=== PATIENT | male | born 1965 | race African-American/Black ===

== ENCOUNTER 2020-04-06 08:55 | Day surgery (SDC) | payer OTHER ==
[2020-03-28 10:30] VITALS: BMI 28.6
--- NOTE | 2020-04-06 07:46 | HP ---
Admitting History and Physical - Admission Chief Complaint: Right hip osteoarthritis x years History of Present Illness: 54 year old male presents today in regard to their right hip. Longstanding history of right hip osteoarthritis. Patient complains of pain, limited ROM, difficulty ambulating and difficulty completing activities of daily living. Patient has failed conservative treatment options including PO medications, injections, exercise programs and activity modification. Diagnostic testing reveals severe osteoarthritis of the right hip joint. At this point, patient would like to proceed with surgical intervention; a right total hip arthroplasty, MAKOplasty. History Source: Patient - Past Medical History Musculoskeletal: Yes: Osteoarthritis - Past Surgical History Additional Past Surgical History: surgery on L hand 1993 - Smoking History Smoking history: Never smoked Have you smoked in the past 12 months: No - Alcohol/Substance Use Hx Alcohol Use: Yes (SUGGS 1-2 X WKLY) Home Medications - Allergies Allergies/Adverse Reactions: Allergies Allergy/AdvReac Type Severity Reaction Status Date / Time No Known Drug Allergies Allergy Verified 10/04/19 11:39 - Home Medications Home Medications: Ambulatory Orders Oxycodone HCl 10 mg PO ASDIR PRN 03/28/20 Review of Systems - Review of Systems Musculoskeletal: reports: Decreased ROM (right hip), Joint Pain (right hip) Physical Examination Constitutional: Yes: Well Nourished, No Distress Eyes: Yes: Conjunctiva Clear HENT: Yes: Atraumatic Neck: Yes: Supple Cardiovascular: Yes: Regular Rate and Rhythm Respiratory: Yes: Regular Gastrointestinal: Yes: Soft ...Rectal Exam: Yes: Deferred Musculoskeletal: Yes: Joint Stiffness (right hip), Other (Limited ROM right hip) Assessment/Plan 54 year old male presents today in regard to their right hip. Longstanding history of right hip osteoarthritis. Patient complains of pain, limited ROM, difficulty ambulating and difficulty completing activities of daily living. Patient has failed conservative treatment options including PO medications, injections, exercise programs and activity modification. Diagnostic testing reveals severe osteoarthritis of the right hip joint. At this point, patient wo uld like to proceed with surgical intervention; a right total hip arthroplasty, MAKOplasty. Pros, cons, risks, benefits & alternatives of a right total hip arthroplasty, MAKOplasty was discussed with the patient at length. Patient confirms his understanding and consents to proceed with a right total hip arthroplasty - MAKOplasty.
[~2020-04-06 08:55] MED LIST: BUPIVICAINE 0.25%/MORPH PF/KETOROLAC - 51ML DISP.SYRINGE IA ONE; CEFAZOLIN 2 GM/D5W 2 GRAM/50 ML ML IVPB ONE; CELECOXIB 200 MG CAPSULE PO ONE; PANTOPRAZOLE 40 MG TABLET PO ONE; TRANEXAMIC ACID 1000 MG/10 ML VIAL IVPUSH ONE; oxyCODONE HCL 10 MG SUSTAINED ACTING TABLET PO ONE
[2020-04-06 09:25] VITALS: BP 134/82; PULSE 68; TEMP 98.1
--- NOTE | 2020-04-06 12:38 | PN ---
Progress Note (short form) - Note Progress Note: Pt's surgery canceled because he has a right lower jaw dental abscess with significant swelling x 1 week from cracked tooth. Will be prescribed Augmentin and will make appt to see dentist tomorrow. Surgery will be rescheduled when abscess is resolved.
== END 2020-04-06 12:30 | disposition home or self-care (01) | DRG 351 ==
LOC: UNDOADMIN 08:55 → FASUSAT 08:55 → FM/S 08:55 → EDSTATUS 11:00 → UNDODISIN 12:30 → FASUSAT 12:30
PROVIDERS: ATTEND Student in an Organized Health Care Education/Training Program
PROC: 0SR90JZ Replacement of Right Hip Joint with Synthetic Substitute, Open Approach (ICD-10-PCS; principal; 2020-04-06)
DX: M16.11 Unilateral primary osteoarthritis, right hip (principal); Z53.09 Procedure and treatment not carried out because of other contraindication; K04.7 Periapical abscess without sinus

== ENCOUNTER 2020-05-18 08:39 | Inpatient (IN) | payer OTHER ==
[2020-05-15 11:08] VITALS: BMI 28.8
--- NOTE | 2020-05-18 07:49 | HP ---
Admitting History and Physical - Admission Chief Complaint: Right hip osteoarthritis x years History of Present Illness: 54 year old male presents today in regard to their right hip. Longstanding history of right hip osteoarthritis. Patient complains of pain, limited ROM, difficulty ambulating and difficulty completing activities of daily living. Patient has failed conservative treatment options including PO medications, injections, exercise programs and activity modification. Diagnostic testing reveals severe osteoarthritis of the right hip joint. At this point, patient would like to proceed with surgical intervention; a right total hip arthroplasty, MAKOplasty. History Source: Patient - Past Medical History Musculoskeletal: Yes: Osteoarthritis - Past Surgical History Additional Past Surgical History: Denies previous surgery - Smoking History Smoking history: Never smoked Have you smoked in the past 12 months: No - Alcohol/Substance Use Hx Alcohol Use: Yes (SUGGS 1-2 X WKLY) Home Medications - Allergies Allergies/Adverse Reactions: Allergies Allergy/AdvReac Type Severity Reaction Status Date / Time No Known Drug Allergies Allergy Verified 04/06/20 09:12 - Home Medications Home Medications: Ambulatory Orders Oxycodone HCl 10 mg PO ASDIR PRN 03/28/20 Review of Systems - Review of Systems Musculoskeletal: reports: Decreased ROM (right hip), Joint Pain (right hip) Physical Examination Constitutional: Yes: Well Nourished, No Distress Eyes: Yes: Conjunctiva Clear HENT: Yes: Atraumatic Neck: Yes: Supple Cardiovascular: Yes: Regular Rate and Rhythm Respiratory: Yes: Regular Gastrointestinal: Yes: Soft ...Rectal Exam: Yes: Deferred Musculoskeletal: Yes: Joint Stiffness (right hip), Other (Limited ROM right hip) Assessment/Plan 54 year old male presents today in regard to their right hip. Longstanding history of right hip osteoarthritis. Patient complains of pain, limited ROM, difficulty ambulating and difficulty completing activities of daily living. Patient has failed conservative treatment options including PO medications, injections, exercise programs and activity modification. Diagnostic testing reveals severe osteoarthritis of the right hip joint. At this point, patient would like to proceed with surgical intervention; a right total hip arthroplasty, MAKOplasty. Pros, cons, risks, benefits & alternatives of a right total hip arthroplasty, MAKOplasty was discussed with the patient at length. Patient confirms his understanding and consents to proceed with a right total hip arthroplasty - MAKOplasty.
[~2020-05-18 08:39] MED LIST changes: +CEFAZOLIN 2 GM in DEXTROSE 5%-WATER - 50 ML IVPB ONE; -CEFAZOLIN 2 GM/D5W 2 GRAM/50 ML ML IVPB ONE
[2020-05-18] MEDS ORDERED: oxyCODONE HCL 10 MG SUSTAINED ACTING TABLET ONE (09:22)
[2020-05-18] MEDS ORDERED: PANTOPRAZOLE 40 MG TABLET ONE (09:22)
[2020-05-18] MEDS ORDERED: CELECOXIB 200 MG CAPSULE ONE (09:23)
[2020-05-18] MEDS ORDERED: DEXAMETHASONE SOD PHOSPHATE/PF 10 MG/ML SDV ONE (09:51)
[2020-05-18] MEDS ORDERED: MIDAZOLAM HCL 2 MG/2 ML SINGLE DOSE VIAL ONE (09:52)
[2020-05-18] MEDS ORDERED: BUPIVACAINE HCL/PF 0.5% (5 MG/ML) 30 ML VIAL IJ ONE (09:52)
[2020-05-18] MEDS ORDERED: LIDOCAINE HCL/PF 2% SDV 5ML VIAL ONE (09:55)
[2020-05-18] MEDS ORDERED: BUPIVACAINE HCL/PF 0.5% (5MG/ML) 10 ML VIAL ONE (11:38)
[2020-05-18] MEDS ORDERED: VANCOMYCIN 1,000 MG VIAL (RESTRICTED TO ID ONLY) ONE (11:40)
[2020-05-18] MEDS ORDERED: ceFAZolin SODIUM 1 GM VIAL ONE (11:40)
[2020-05-18] MEDS ORDERED: TRANEXAMIC ACID 1000 MG/10 ML VIAL ONE (11:40)
[2020-05-18] MEDS ORDERED: LACTATED RINGERS SOLUTION 1,000 ML IV SCH ×2 (11:45→15:00)
[2020-05-18] MEDS ORDERED: ONDANSETRON 4 MG/2 ML VIAL IVPUSH PRN ×2 (11:45→14:52)
[2020-05-18] MEDS ORDERED: PROPOFOL 20 ML ONE ×5 (11:59→14:06)
[2020-05-18] MEDS ORDERED: ceFAZolin SODIUM 1 GM VIAL IVPB ONE (12:46)
[2020-05-18] MEDS ORDERED: VANCOMYCIN 1,000 MG VIAL (RESTRICTED TO ID ONLY) IVPB ONE ×2 (12:47→14:23)
[2020-05-18] MEDS ORDERED: TRANEXAMIC ACID 1000 MG/10 ML VIAL IVPB ONE ×2 (12:47→14:23)
[2020-05-18] MEDS ORDERED: BUPIVICAINE 0.25%/MORPH PF/KETOROLAC - 51ML DISP.SYRINGE IA ONE (13:43)
[2020-05-18] MEDS ORDERED: KETOROLAC TROMETHAMINE 30 MG/1 ML VIAL ONE (14:35)
[2020-05-18] MEDS ORDERED: ACETAMINOPHEN INJECTION 100 ML IVPB ONE (14:36)
[2020-05-18] MEDS ORDERED: traMADol HCL 50 MG TABLET ONE (14:36)
--- NOTE | 2020-05-18 14:48 | OP ---
Operative Note - Note: Operative Date: 05/18/20 Pre-Operative Diagnosis: Right hip OA Operation: Right ANIL REENA Post-Operative Diagnosis: Same as Pre-op Surgeon: Vineet Diallo Head Housekeeper: Renea Romo Anesthesia: Spinal Estimated Blood Loss (mls): 200
[2020-05-18] MEDS ORDERED: ACETAMINOPHEN 1000 MG/100 ML VIAL (NON FORMULARY) IVPB ONE (14:50)
[2020-05-18] MEDS ORDERED: MAGNESIUM HYDROX 2400MG/30ML ORAL SUSPENSION 30 ML CUP PO PRN (14:52)
[2020-05-18] MEDS ORDERED: MAG HYDROX/AL HYDROX/SIMETH 30 ML UNIT-DOSE CUP PO PRN (14:52)
--- NOTE | 2020-05-18 14:53 | SURG ---
Surgery Director Of Sales Support Note Director Of Sales Support: Renea Romo PA-C Date of Service: 05/18/20 Diagnosis: right hip arthroplasty Procedure: Fran assisted right total hip arthroplasty I was present for the entirety of the operative procedure. For further detail, please refer to operative report. Visit type - Case Type Case Type: Scheduled - Emergency Emergency Visit: No - New patient This patient is new to me today: Yes Date on this admission: 05/18/20
[2020-05-18] MEDS: KETOROLAC TROMETHAMINE 30 MG/1 ML VIAL IVPUSH SCH ×2 (15:12→20:30)
--- NOTE | 2020-05-18 15:44 | SPEC ---
DATE OF OPERATION: 05/18/2020 PREOPERATIVE DIAGNOSIS: Right hip osteoarthritis. POSTOPERATIVE DIAGNOSIS: Right hip osteoarthritis. PROCEDURE: Right total hip replacement with MAKOplasty robotic navigation. ATTENDING: Ricco Andres MD PHARMACY OPERATIONS MANAGER: Renea Romo PA-C ANESTHESIA: Spinal plus sedation. ESTIMATED BLOOD LOSS: 200 mL COMPLICATIONS: None. DISPOSITION: The patient was transferred to the PACU in stable condition. IMPLANTS USED: Du Accolade II size 6 femoral component, Du Trident II 54-mm acetabular component with 25-mm acetabular screw, MDM bipolar head ball and liner with inner ceramic 0-mm offset head ball. INDICATIONS: This is a 54-year-old male who presented to the office complaining of severe right hip pain. He was seen and examined by Dr. Andres and diagnosed with severe right hip osteoarthritis. The patient was initially treated nonoperatively with injections, medications and physical therapy, but continued to have severe pain and ambulatory dysfunction. The patient was, therefore, indicated for a right total hip replacement. The risks, benefits and alternatives to the procedure were explained to the patient in great detail and he elected to proceed with the surgery. DESCRIPTION OF PROCEDURE: On the day of surgery, the patient was taken to the operating room and placed on the OR table. Spinal anesthesia was administered by the anesthesiologist. The patient was then positioned in the lateral decubitus position on the table and all bony prominences were padded. An axillary roll was placed. The operative hip was then prepped and draped in the usual sterile fashion and intravenous antibiotics were given for infection prophylaxis. A surgical timeout was then performed with the team, and the patients identity, procedure, side, availability of implants, and the administration of antibiotics were confirmed. An approximately 15-cm longitudinal incision was made through the skin centered on the greater trochanter of the hip. This dissection was carried down through the subcutaneous tissues to the deep fascia. This fascia was then incised and a Cobra was placed around the inferior femoral neck. Electrocautery was used to reflect the anterior 40% of the gluteus medius and minimus starting at the musculotendinous junction and leaving a cuff for closure. This was reflected to reveal the capsule of the hip joint. An anterior capsulectomy was performed and the femoral head and neck were visualized. Grade 4 changes were noted diffusely throughout the joint. At this point, three small stab incisions were made superior to the main incision along the iliac crest. Three self-drilling Steinmann pins were then placed and the [employer] pelvic array was attached. Reference points on the limb were then entered into the robotic device and the limb length deficiency, offset, and femoral neck resection level were then calculated by the software. The hip was then dislocated with traction and external rotation. An oscillating saw was used to make the femoral neck cut at the level previously templated, and the femoral head was removed. Attention was then turned to the acetabulum. Retractors were then placed around the acetabulum and the labrum was removed. An acetabular checkpoint pin and the [employer] software were used to register the contours of the acetabulum. The acetabulum was then reamed in a single stage to the preoperatively templated size using the [employer] robotic arm. The appropriately sized cup was then impacted and had solid fixation as well as the preset inclination and version of 40 and 20 degrees, respectively. A polyethylene liner was then placed in the cup. Attention was then turned back to the femur, which was externally rotated for improved visualization. A femoral neck elevator was used to present the femoral neck cut, a box osteotome was used to enter the femoral canal, and a canal finder was used to go down the femoral shaft. The ANIL broaches were used sequentially until the optimal scratch fit was achieved. This correlated with the preoperatively templated size. From here, several different offset head and neck configurations were tested until excellent stability and length were obtained. These measurements were quantified using the [employer] software. All trial components were then removed, the femur was copiously irrigated, and the final components were placed. Leg length and stability were checked again and found to be excellent. Irrigation was performed again. Wound closure was started by repairing the abductor muscles with a no. 2 FiberWire stitch in a Krackow configuration passed through bone tunnels in the greater trochanter and tied over a bony bridge. This repair was then reinforced with a 0 V-Loc 180 barbed suture. Next, No. 1 Polysorb and 0 V-Loc 180 were used to close the fascia. The deep subcutaneous tissue was closed with no. 1 Polysorb sutures, and 2-0 Polysorb was used for the superficial subcutaneous tissue. The skin was closed using both 3-0 V-Loc 90 suture in a running subcuticular fashion and SwiftSet skin adhesive. The ANIL array and pins were removed from the iliac crest and the stab incision sites were irrigated and closed with 4-0 Polysorb sutures and SwiftSet skin adhesive. Once this was completed, a sterile dressing was applied. The patient was then awakened and taken to the PACU in stable condition. ADDENDUM: After final implants were placed, a 3-minute dilute Betadine soak was performed. Following this, wound closure was begun. RICCO ANDRES M.D. [id number]
[2020-05-18] MEDS: traMADol HCL 50 MG TABLET PO SCH ×2 (16:14→20:31)
[2020-05-18] MEDS: CEFAZOLIN 2 GM/D5W 2 GM/50 ML ML IVPB SCH (17:53)
[2020-05-18] MEDS: oxyCODONE HCL 5 MG TABLET PO PRN (18:08)
[2020-05-18] MEDS: GABAPENTIN 300 MG CAPSULE PO SCH (21:12)
[2020-05-18] MEDS: SENNOSIDES/DOCUSATE COMBO (SENNA PLUS) TABLET (UD) PO SCH (21:12)
[2020-05-18] MEDS: oxyCODONE HCL 10 MG SUSTAINED ACTING TABLET PO SCH (21:12)
[2020-05-18] MEDS: CELECOXIB 200 MG CAPSULE PO SCH (21:12)
[2020-05-18] MEDS: ASCORBIC ACID 500 MG TABLET (FP) PO SCH (21:12)
[2020-05-19] MEDS ORDERED: DEXAMETHASONE SOD PHOSPHATE 10 MG/1 ML VIAL IVPB ONE
[2020-05-19] MEDS: CEFAZOLIN 2 GM/D5W 2 GM/50 ML ML IVPB SCH (02:06)
[2020-05-19] MEDS: KETOROLAC TROMETHAMINE 30 MG/1 ML VIAL IVPUSH SCH ×2 (02:08→09:17)
[2020-05-19] MEDS: traMADol HCL 50 MG TABLET PO SCH ×4 (02:09→21:16)
[2020-05-19] MEDS: oxyCODONE HCL 5 MG TABLET PO PRN (05:56)
[2020-05-19 07:56] LABS: CALCIUM 8.9 mg/dl (8.5-10); CREATININE 1.3 mg/dl (0.55-1.3)
[2020-05-19 07:58] LABS: HEMATOCRIT 38.5 % (35.4-49); HEMOGLOBIN 13.2 GM/dl (11.7-16.9); MCH 31.9 pg (25.7-33.7); MCHC 34.2 g/dl (32.0-35.9); MEAN CELL VOLUME 93.3 fl (80-96); MEAN PLT VOLUME 8.8 fl (7.5-11.1); PLATELET COUNT 261 K/MM3 (134-434); RBC 4.13 M/mm3 (4.00-5.60); RDW 12.3 % (11.9-15.9); WHITE BLOOD COUNT 13.7 K/mm3 (4.0-10.8)
[2020-05-19] MEDS: PANTOPRAZOLE 40 MG TABLET PO SCH (09:16)
[2020-05-19] MEDS: ASCORBIC ACID 500 MG TABLET (FP) PO SCH ×2 (09:16→21:16)
[2020-05-19] MEDS: ASPIRIN 325 MG TABLET PO SCH (09:17)
[2020-05-19] MEDS: MULTIVITAMINS (DAILY MVI) TABLET (FP) PO SCH (09:18)
[2020-05-19] MEDS: oxyCODONE HCL 10 MG SUSTAINED ACTING TABLET PO SCH (09:18)
[2020-05-19] MEDS: CELECOXIB 200 MG CAPSULE PO SCH ×2 (09:18→21:16)
[2020-05-19] MEDS: SENNOSIDES/DOCUSATE COMBO (SENNA PLUS) TABLET (UD) PO SCH ×2 (09:18→21:15)
[2020-05-19] MEDS ORDERED: MULTIVITAMINS (DAILY MVI) TABLET (FP) PO SCH (10:00)
[2020-05-19] MEDS: GABAPENTIN 300 MG CAPSULE PO SCH ×2 (10:00→21:16)
--- NOTE | 2020-05-19 13:21 | PN ---
Progress Note (short form) - Note Progress Note: S: pt. comfortable in a chair. No complaints O: VAS 4/10 A/P: POD#1 s/p Right Total Hip Replacement 1. Con't pain meds as ordered 2. No apparent anesthetic complications.
--- NOTE | 2020-05-20 00:10 | PN ---
Progress Note (short form) - Note Progress Note: Pt seen and examined. Doing well. AVSS Selected Entries 05/19/20 20:00 Temperature 98.1 F Pulse Rate 75 Respiratory 14 Rate Blood Pressure 118/68 O2 Sat by Pulse 99 Oximetry (%) Laboratory Tests 05/19/20 05/19/20 06:50 06:50 WBC 13.7 H Hgb 13.2 Hct 38.5 Plt Count 261 Sodium 135 L Potassium 4.0 Chloride 102 Carbon Dioxide 23 Anion Gap 10 BUN 22.0 H Creatinine 1.3 Est GFR (CKD-EPI)AfAm 71.69 Est GFR (CKD-EPI)NonAf 61.86 Calcium 8.9 Gen: NAD RLE: c/d/i, NVID A/P POD#1 s/p R REENA PT/OOB D/C home in AM
--- NOTE | 2020-05-20 00:13 | DS ---
Physical Examination Vital Signs: Vital Signs Temperature 98.1 F 05/19/20 20:00 Pulse Rate 75 05/19/20 20:00 Respiratory Rate 14 05/19/20 20:00 Blood Pressure 118/68 05/19/20 20:00 O2 Sat by Pulse Oximetry (%) 99 05/19/20 20:00 Labs: CBC, BMP 05/19/20 06:50 05/19/20 06:50 Discharge Summary Problems reviewed: Yes Reason For Visit: OSTEOARTHRITIS RIGHT HIP Procedures: Principal: Right ANIL REENA Hospital Course: Admitted for elective surgery. Procedure performed without complications. Pt received postoperative antibiotic prophylaxis and DVT ppx. Ambulated with physical therapy. Stable for discharge home with outpatient followup. Condition: Stable - Instructions Diet, Activity, Other Instructions: Dr Diallo - Hip Replacement Instructions Keep the Aquacel dressing on until removed by Dr. Diallo in 2 weeks - it is antibacterial and waterproof and you can shower with it on. Call the office for a follow-up appointment with Dr. Diallo in 2 weeks. Take one Aspirin 325mg daily for 6 weeks to prevent blood clots in your legs. Take one Pantoprazole 40mg daily for 6 weeks to protect against heartburn and ulcers. Take Cephalexin (antibiotic) 3x/day for 10 days to help prevent skin infection. Take Diclofenac 75mg twice daily with food for 30 days to reduce swelling and inflammation. Take a multivitamin, stool softener and extra Vitamin C supplement daily. For pain: *Mild pain (1-3/10): Take 1 Percocet (5/325) tablet every 4 hours as needed. Moderate/Severe pain (4-10/10): Take 2 Percocet (5/325) tablets every 4 hours as needed. Activity: You can put as much weight on the operative leg as you want. For the first 6 weeks, all you need to do is walk around the house, go up/down stairs, and sit down/get up. After 6 weeks when everything is healed (and bone has grown into the implant) you will be sent for more intensive outpatient physical therapy. Always use a walker or cane for balance and to prevent falls. Expect to see swelling / bruising from the operative site all the way down to your toes. Wear the Compression stocking on the operative side during the day to minimize h ow much swelling there is in your foot/ankle. Don't wear the stocking at night. You don't have to wear the stocking on the other side. Disposition: [facility]NS/HOME HEALTH CARE - Home Medications Comprehensive Discharge Medication List: Ambulatory Orders Ascorbic Acid [Vitamin C -] 500 mg PO BID tablet 05/18/20 Aspirin [Aspirin EC] 325 mg PO DAILY #42 tab 05/18/20 Cephalexin Monohydrate [Keflex -] 500 mg PO TID #30 capsule 05/18/20 Diclofenac Sodium 75 mg PO BID #60 tab 05/18/20 Multivitamins [Multivit ([facility] Formulary)] 1 tab PO DAILY tab 05/18/20 Oxycodone HCl/Acetaminophen [Percocet 5-325 mg Tablet] 1 - 2 tab PO Q4H PRN #90 tablet MDD 10 05/18/20 Pantoprazole Sodium [Protonix -] 40 mg PO DAILY #40 tab 05/18/20 Sennosides/Docusate Sodium [Pericolace -] 2 tablet PO BID tablet 05/18/20
[2020-05-20] MEDS: traMADol HCL 50 MG TABLET PO SCH ×2 (06:29→08:21)
[2020-05-20] MEDS: ASPIRIN 325 MG TABLET PO SCH (08:21)
[2020-05-20 08:26] LABS: HEMATOCRIT 38.7 % (35.4-49); HEMOGLOBIN 12.9 GM/dl (11.7-16.9); MCH 31.4 pg (25.7-33.7); MCHC 33.3 g/dl (32.0-35.9); MEAN CELL VOLUME 94.3 fl (80-96); MEAN PLT VOLUME 8.3 fl (7.5-11.1); PLATELET COUNT 273 K/MM3 (134-434); RBC 4.11 M/mm3 (4.00-5.60); RDW 12.6 % (11.9-15.9); WHITE BLOOD COUNT 13.6 K/mm3 (4.0-10.8)
[2020-05-20 10:14] VITALS: BP 115/54; PULSE 89; TEMP 99.5
[2020-05-20] MEDS: PANTOPRAZOLE 40 MG TABLET PO SCH (10:25)
[2020-05-20] MEDS: SENNOSIDES/DOCUSATE COMBO (SENNA PLUS) TABLET (UD) PO SCH (10:25)
[2020-05-20] MEDS: CELECOXIB 200 MG CAPSULE PO SCH (10:25)
[2020-05-20] MEDS: MULTIVITAMINS (DAILY MVI) TABLET (FP) PO SCH (10:25)
[2020-05-20] MEDS: ASCORBIC ACID 500 MG TABLET (FP) PO SCH (10:26)
[2020-05-20] MEDS: GABAPENTIN 300 MG CAPSULE PO SCH (10:26)
--- NOTE | 2020-05-23 15:09 | PATH ---
Surgical Pathology Report Patient Name: LAURIE JONES Med. Rec. #: [id number] /Age/Gender: 1965 (Age: 54) / M Account: [id number] Location: [facility]END[facility] TO [facility] Taken: 05/18/2020 Received: 05/18/2020 Reported: 05/23/2020 Physicians: Vineet Diallo M.D. Specimen(s) Received RIGHT FEMORAL HEAD Clinical History Right hip osteoarthritis Final Diagnosis RIGHT FEMORAL HEAD, RESECTION: DEGENERATIVE JOINT DISEASE, RIGHT HIP. Electronically Signed Sohan Benavides M.D. Gross Description Received in formalin, labeled "right femoral head," is a 0.4 x 5.8 x 3.8 cm. femoral head with attached portion of femoral neck. The margin of resection is smooth. The articular surface shows areas of eburnation and appears granular. The underlying trabecular bone is yellow and hard. A public utilities sales representative section is submitted in one cassette, following decalcification. AE/05/19/2020 ebram/05/19/2020
== END 2020-05-20 11:00 | disposition home health service (06) | DRG 301 ==
LOC: FM/S 08:39
PROVIDERS: ADMIT Student in an Organized Health Care Education/Training Program; ATTEND Student in an Organized Health Care Education/Training Program
PROC: 8E0Y0CZ Robotic Assisted Procedure of Lower Extremity, Open Approach (ICD-10-PCS; 2020-05-18)
PROC: 0SR90JZ Replacement of Right Hip Joint with Synthetic Substitute, Open Approach (ICD-10-PCS; principal; 2020-05-18 12:38)
DX: M16.11 Unilateral primary osteoarthritis, right hip (principal)
CPT/HCPCS: 36415; 73502-TC-RT-FY; 80048; 85027; 86850; 86900; 86901; 88304-TC; 88311-TC; 94760; 97116-GP; 97163-GP; J0131; J1100